=== PATIENT | male | born 1945 | race Hispanic/Latino ===

== ENCOUNTER → 2020-07-16 | Outpatient (CLI) | payer MEDICARE | END | disposition home or self-care (01) | LOC: SHCH 10:15 | PROVIDERS: ATTEND Internal Medicine Cardiovascular Disease | DX: R06.09 Other forms of dyspnea (principal) | CPT/HCPCS: 93306 ==

== ENCOUNTER 2020-11-18 07:54 | Day surgery (SDC) | payer MEDICARE ==
[2020-11-12 13:05] LABS: BASOPHILS % (AUTO) 0.4 % (0.0-5.0); EOSINOPHILS % (AUTO) 0.5 % (0.0-8.0); HEMATOCRIT 51.4 % (42-54); LYMPHOCYTES % (AUTO) 14.5 % (21.0-51.0); MEAN CORPUSCULAR HEMOGLOBIN 29.3 pg (27.0-33.0); MEAN CORPUSCULAR HGB CONC 32.9 g/dL (32.0-36.0); MEAN CORPUSCULAR VOLUME 89.1 fL (79-99); MONOCYTES % (AUTO) 4.9 % (3.0-13.0); NEUTROPHILS % (AUTO) 79.2 % (40.0-77.0); PLATELET COUNT (AUTO) 240 K/uL (130-400); RED BLOOD CELL COUNT(AUTO) 5.77 MIL/uL (4.50-6.20); RED CELL DISTRIBUTION WIDTH 13.7 % (11.0-15.5); WHITE BLOOD COUNT (AUTO) 8.2 K/uL (4.8-10.8)
[2020-11-12 13:32] LABS: CREATININE 1.2 mg/dL (0.5-1.5); POTASSIUM 4.2 mmol/L (3.5-5.1)
[2020-11-12 13:34] LABS: APPEARANCE,URINE Clear (CLEAR); BILIRUBIN,URINE Negative (NEGATIVE); COLOR,URINE Yellow (YELLOW); GLUCOSE, URINE (UA) 250 mg/dL (NEGATIVE); KETONES,URINE Negative (NEGATIVE); LEUKOCYTE ESTERASE ,URINE Negative (NEGATIVE); NITRATE,URINE Negative (NEGATIVE); OCCULT BLOOD,URINE Trace (NEGATIVE); PROTEIN,URINE 300 mg/dL (NEGATIVE); UROBILINOGEN,URINE 0.2 mg/dL (0.2-1.0)
[2020-11-12 13:46] LABS: BACTERIA,URINE Rare /HPF (None Seen); RBC,URINE 0-1 /HPF (0-1); SQUAMOUS EPITHELIAL CELL,UR Rare /HPF (0-2); WBC,URINE 0-1 /HPF (0-1)
[2020-11-17 09:55] VITALS: BP 125/83
[2020-11-18] VITALS (17 sets, daily range): BP systolic 129–153; BP diastolic 71–91
[~2020-11-18] VITALS: Ht 177.8 cm; Wt 85.5 kg
[~2020-11-18 07:54] MED LIST: ASPI-1197 PO; BOTULINUM TOXIN TYPE A 100 UNITS/VIAL INJ SCH; FENO54TA6 PO; MACR100 PO; METF-444 PO; METO50TA18 PO; SIMV10TA97 PO
[2020-11-18] MEDS ORDERED: SODIUM CHLORIDE 0.9% 1000ML 1,000 ML IV ONE (09:05)
[2020-11-18] MEDS: CEFTRIAXONE SODIUM 1 GM IVP SCH ×2 (09:09→11:35)
[2020-11-18] MEDS ORDERED: BOTULINUM TOXIN TYPE A 100 UNITS/VIAL ONE (11:01)
[2020-11-18] MEDS ORDERED: SUCCINYLCHOLINE 200MG/10ML SYR ONE (11:15)
[2020-11-18] MEDS ORDERED: LIDOCAINE PF 2% 5ML ABBOJECT ONE (11:15)
[2020-11-18] MEDS ORDERED: PROPOFOL 10 MG/ML 20ML VIAL IV ONE (11:16)
[2020-11-18] MEDS ORDERED: FENTANYL CITRATE PF 50 MCG/1 ML 2ML VIAL ONE (11:16)
[2020-11-18] MEDS ORDERED: GLYCOPYRROLATE 1 MG/5 ML SYRINGE ONE (11:45)
== END 2020-11-18 13:35 | disposition home or self-care (01) ==
LOC: DAH 07:54
PROVIDERS: ATTEND Urology
DX: N39.46 Mixed incontinence (principal); I10 Essential (primary) hypertension; I25.10 Atherosclerotic heart disease of native coronary artery without angina pectoris; E66.01 Morbid (severe) obesity due to excess calories; I45.10 Unspecified right bundle-branch block; E11.9 Type 2 diabetes mellitus without complications; Z85.46 Personal history of malignant neoplasm of prostate; Z85.038 Personal history of other malignant neoplasm of large intestine; Z79.899 Other long term (current) drug therapy
CPT/HCPCS: 36415; 52287; 80048; 81001; 82948 ×2; 85025; 87088; 93005; A4215 ×2; A4216; A4221; A4222; A4223 ×2; A4248; A4358; A4663; A6260; J0330; J0585 ×2; J0696; J2001; J2704; J3010; J3490; J7030 ×2

== ENCOUNTER → 2024-10-09 | Outpatient (CLI) | payer MEDICARE ==
[~2024-10-09] MED LIST changes: -BOTULINUM TOXIN TYPE A 100 UNITS/VIAL INJ SCH
--- NOTE | 2024-10-09 14:42 | HMCSR ---
APPROVED REPORT Bilateral Lower Extremity Venous Study for DVT., Venous Competence.Study performed with patient in up right position or in reverse Trendelenburg. Vein Imaging CFV (R): Normal flow, augmentation and compression. No evidence of DVT. SFJ (R): Normal flow, augmentation and compression. No evidence of DVT. FEM (R): Normal flow, augmentation and compression. No evidence of DVT, 1189 ms POP (R): Normal flow, augmentation and compression. No evidence of DVT. DFV (R): Normal flow, augmentation and compression. No evidence of DVT. Peroneals (R): Normal flow, augmentation and compression. No evidence of DVT. GAS (R): Normal flow, augmentation and compression. No evidence of DVT. CFV (L): Normal flow, augmen tation and compression. No evidence of DVT. SFJ (L): Normal flow, augmentation and compression. No evidence of DVT. FEM (L): Normal flow, augmentation and compression. No evidence of DVT. POP (L): Normal flow, augmentation and compression. No evidence of DVT. DFV (L): Normal flow, augmentation and compression. No evidence of DVT. PTV (L): Normal flow, augmentation and compression. No evidence of DVT. GSV (L): *Saphectomy Peroneals (L): Normal flow, augmentation and compression. No evidence of DVT. GAS (L): Normal flow, augmentation and compression. No evidence of DVT. Technologist Impression The deep veins of the bilateral lower extremities appear patent and compressible without evidence of thrombus. Significant deep venous reflux demonstrated in the right femoral vein. RGSV Junction 4.3 mm 0 ms Mid thigh 2.3 mm 0 ms Knee 2.2 mm 0 ms Mid- calf 2.1 mm 422 ms RSSV Prox 2.6 mm 411 ms Mid-Occluded LGSV-Removed LSSV Prox 4.1 mm 339 ms Mid 3.1 mm 483 Conclusion Deep venous reflux noted Clinical correlation recommended Conclusion Deep venous reflux noted Clinical correlation recommended
--- NOTE | 2024-10-09 14:42 | HMCSR ---
APPROVED REPORT Laterality: Bilateral VELOCITY AND DOPPLER WAVEFORM ANALYSIS FOLLOW UP MANAGER (R) 120.9cm/sec, Biphasic, FOLLOW UP MANAGER (L) 122.9cm/sec, Biphasic, Prof Fem Art. (R) 69.9cm/sec, Biphasic, Prof Fem Art. (L) 88.3cm/sec, Biphasic, Fem Art Prox. (R) 81.2cm/sec, Biphasic, Fem Art Prox. (L) 93.9cm/sec, Biphasic, Fem Art Mid. (R) 86.9cm/sec, Biphasic, Fem Art Mid. (L) 88.3cm/sec, Biphasic, Fem Art Dist (R) 193.8cm/sec, Biphasic, Mild < 50% Fem Art Dist. (L) 155.0cm/sec, Biphasic, Mild < 50% Pop Art(AK) (R) 55.0cm/sec, Biphasic, Pop Art (AK) (L) 62.0cm/sec, Biphasic, Pop Art(BK) (R) 40.7cm/sec, Biphasic, Pop Art (BK) (L) 65.3cm/sec, Biphasic, TRANSMISSIONS SYSTEMS OPERATOR Prox. (R) 126.8cm/sec, Biphasic, TRANSMISSIONS SYSTEMS OPERATOR Prox. (L) 55.5cm/sec, Biphasic, TRANSMISSIONS SYSTEMS OPERATOR Mid. (R) 93.3cm/sec, Biphasic, TRANSMISSIONS SYSTEMS OPERATOR Mid. (L) 93.0cm/sec, Biphasic, TRANSMISSIONS SYSTEMS OPERATOR Dist. (R) 93.3cm/sec, Biphasic, TRANSMISSIONS SYSTEMS OPERATOR Dist. (L) 86.5cm/sec, Biphasic, Per Art Dist. (R) 62.2cm/sec, Biphasic, Per Art Dist. (L) 88.1cm/sec, Biphasic, CHELSEA Prox. (R) 45.5cm/sec, Biphasic, CHELSEA Prox. (L) 64.2cm/sec, Biphasic, CHELSEA Mid. (R) cm/sec, Occluded CHELSEA Mid. (L) 160.6cm/sec, Biphasic, Mild < 50% CHELSEA Dist. (R) 88.5cm/sec, Biphasic, CHELSEA Dist. (L) 24.5cm/sec, Biphasic, Technologist Impression Diffuse atherosclerosis throughout the bilateral lower extremities. There is evidence of mild stenosis in the right femoral artery. Multiple lesions noted in the right anterior tibial artery with mid occlusion, collateralized flow is noted distally There is evidence of mild stenosis in the left femoral artery and the left anterior tibial artery. Conclusion Moderate bilateral peripheral arterial disease Occluded right posterior tibial artery Clinical correlation recommended Conclusion Moderate bilateral peripheral arterial disease Occluded right posterior tibial artery Clinical correlation recommended
== END | disposition home or self-care (01) ==
LOC: SHCH 12:41
PROVIDERS: ATTEND Internal Medicine Cardiovascular Disease
DX: I70.203 Unspecified atherosclerosis of native arteries of extremities, bilateral legs (principal); I87.1 Compression of vein; I87.2 Venous insufficiency (chronic) (peripheral)
CPT/HCPCS: 93925; 93970